=== PATIENT | female | born 1990 | race African-American/Black ===

== ENCOUNTER 2017-07-21 23:00 | Inpatient (IN) | payer MEDICAID ==
[~2017-07-21] VITALS: Ht 165.1 cm; Wt 136.5 kg
[2017-07-21] MEDS ORDERED: SERT50TA12 PO (23:37)
[2017-07-21] MEDS ORDERED: QUET200T PO (23:37)
[2017-07-21] MEDS ORDERED: RISP1 PO (23:37)
[2017-07-22] MEDS ORDERED: HALOPERIDOL 5 MG TABLET PO ONE (01:00)
[2017-07-22] MEDS ORDERED: LORazepam 2 MG TABLET PO ONE (01:00)
[2017-07-22 01:27] LABS: BASOPHILS % (AUTO) 0.9 % (0.0-2.0); EOSINOPHILS % (AUTO) 1.2 % (1.0-6.0); HEMATOCRIT 31.1 % (36-46); HEMOGLOBIN 10.2 g/dL (12.0-16.0); LYMPHOCYTES # (AUTO) 3.9 K/uL (1.0-4.8); LYMPHOCYTES % (AUTO) 33.9 % (22.0-44.0); MEAN CORPUSCULAR HGB CONC 32.8 G/dL (31.0-37.0); MEAN CORPUSCULAR VOLUME 79 fL (80-100); MONOCYTES # (AUTO) 0.7 K/uL (0.1-1.0); NEUTROPHILS # (AUTO) 6.6 K/uL (1.8-7.7); PLATELET COUNT (AUTO) 382 K/uL (150-450); RED BLOOD CELL COUNT(AUTO) 3.91 MIL/uL (4.00-5.20); RED CELL DISTRIBUTION WIDTH 16.6 % (11.5-14.5)
[2017-07-22 01:32] LABS: ANION GAP 2 mmol/L (8-16); CALCIUM, TOTAL 8.7 mg/dL (8.8-10.5); CARBON DIOXIDE 30 mmol/L (22-29); CHLORIDE 103 mmol/L (98-107); CREATININE 0.95 mg/dL (0.60-1.30); GLOMERULAR FILTR. RATE CALC > 60 mL/min (>60); GLUCOSE,RANDOM 102 mg/dL (70-110); POTASSIUM 3.3 mmol/L (3.5-5.1); SODIUM SERUM 135 mmol/L (136-145); UREA NITROGEN, BLOOD 9 mg/dL (7-18)
[2017-07-22 01:38] LABS: ALANINE AMINOTRANSFERASE 30 U/L (12-78); ALBUMIN 2.7 g/dL (3.4-5.0); ALKALINE PHOSPHATASE 92 U/L (46-116); ASPARTATE AMINOTRANSFERASE 20 U/L (15-37); BILIRUBIN,TOTAL 0.2 mg/dL (0.1-1.0); TOTAL PROTEIN, SERUM 7.2 g/dL (6.4-8.2)
[2017-07-22 08:48] VITALS: BP 109/62
[2017-07-22] MEDS ORDERED: POTASSIUM CHLORIDE 10 MEQ ER TABLET PO ONE (09:15)
[2017-07-22] MEDS: BACITRACIN 28.4 GM OINTMENT TP SCH ×2 (09:30→17:00)
[2017-07-22] MEDS: SERTRALINE HCL 50 MG TABLET PO SCH (11:15)
[2017-07-22] MEDS: HALOPERIDOL 5 MG TABLET PO PRN (17:40)
[2017-07-22] MEDS: QUEtiapine FUMARATE 100 MG TABLET PO SCH (20:16)
[2017-07-23] MEDS: SERTRALINE HCL 50 MG TABLET PO SCH (09:18)
[2017-07-23] MEDS: BACITRACIN 28.4 GM OINTMENT TP SCH ×2 (09:19→17:02)
[2017-07-23] MEDS ORDERED: POTASSIUM CHLORIDE 20 MEQ ER TABLET PO ONE (09:45)
[2017-07-23 16:28] VITALS: BP 122/80
[2017-07-23 20:06] VITALS: BP 126/82
[2017-07-23] MEDS: QUEtiapine FUMARATE 100 MG TABLET PO SCH (20:06)
[2017-07-23] MEDS: ACETAMINOPHEN 325 MG TABLET PO PRN (20:06)
[2017-07-23] MEDS: ZOLPIDEM TARTRATE 10 MG TABLET PO PRN (21:11)
[2017-07-24] MEDS: BACITRACIN 28.4 GM OINTMENT TP SCH ×2 (10:51→17:02)
[2017-07-24] MEDS: SERTRALINE HCL 50 MG TABLET PO SCH (10:52)
[2017-07-24 16:19] VITALS: BP 126/85
[2017-07-24] MEDS: QUEtiapine FUMARATE 100 MG TABLET PO SCH (20:04)
[2017-07-24] MEDS: ZOLPIDEM TARTRATE 10 MG TABLET PO PRN (20:04)
[2017-07-25] MEDS: SERTRALINE HCL 50 MG TABLET PO SCH (08:38)
[2017-07-25] MEDS: BACITRACIN 28.4 GM OINTMENT TP SCH ×2 (08:39→17:27)
[2017-07-25] MEDS: FERROUS SULFATE 325 MG EC TABLET PO SCH (17:27)
[2017-07-25] MEDS: ACETAMINOPHEN 325 MG TABLET PO PRN (17:50)
[2017-07-25] MEDS: QUEtiapine FUMARATE 100 MG TABLET PO SCH (20:17)
[2017-07-26 01:19] VITALS: BP 116/76
[2017-07-26] MEDS: ACETAMINOPHEN 325 MG TABLET PO PRN ×2 (01:27→20:21)
[2017-07-26] MEDS: ZOLPIDEM TARTRATE 10 MG TABLET PO PRN ×2 (01:28→21:05)
[2017-07-26] MEDS: FERROUS SULFATE 325 MG EC TABLET PO SCH ×3 (07:04→16:18)
[2017-07-26] MEDS: SERTRALINE HCL 50 MG TABLET PO SCH (08:37)
[2017-07-26] MEDS: BACITRACIN 28.4 GM OINTMENT TP SCH ×2 (08:41→17:04)
[2017-07-26 08:47] VITALS: BP 120/80
[2017-07-26] MEDS ORDERED: QUET50TA PO (12:49)
[2017-07-26 16:08] VITALS: BP 117/71
[2017-07-26] MEDS: CEPHALEXIN MONOHYDRATE 500 MG CAPSULE PO SCH (16:18)
[2017-07-26] MEDS: SULFAMETHOX/TRIMETH DS 800-160 MG/TABLET PO SCH (16:18)
[2017-07-26] MEDS: HALOPERIDOL 5 MG TABLET PO PRN (18:28)
[2017-07-26] MEDS: LORazepam 2 MG TABLET PO PRN (18:28)
[2017-07-26] MEDS: QUEtiapine FUMARATE 100 MG TABLET PO SCH (20:16)
[2017-07-27] MEDS: FERROUS SULFATE 325 MG EC TABLET PO SCH ×4 (07:00→16:59)
[2017-07-27] MEDS: BACITRACIN 28.4 GM OINTMENT TP SCH ×2 (08:55→16:30)
[2017-07-27] MEDS: CEPHALEXIN MONOHYDRATE 500 MG CAPSULE PO SCH ×3 (08:56→16:30)
[2017-07-27] MEDS: SERTRALINE HCL 50 MG TABLET PO SCH (08:56)
[2017-07-27] MEDS: SULFAMETHOX/TRIMETH DS 800-160 MG/TABLET PO SCH ×2 (09:00→16:30)
[2017-07-27 13:07] VITALS: BP 109/72
[2017-07-27] MEDS: ACETAMINOPHEN 325 MG TABLET PO PRN (13:49)
[2017-07-27] MEDS ORDERED: FLUCONAZOLE 150 MG TABLET PO ONE (16:00)
[2017-07-27 16:33] VITALS: BP 119/74
[2017-07-27] MEDS: QUEtiapine FUMARATE 100 MG TABLET PO SCH (20:27)
[2017-07-27] MEDS: ZOLPIDEM TARTRATE 10 MG TABLET PO PRN (20:34)
[2017-07-28 01:23] VITALS: BP 117/70
[2017-07-28] MEDS: LORazepam 2 MG TABLET PO PRN (01:25)
[2017-07-28] MEDS: ACETAMINOPHEN 325 MG TABLET PO PRN (01:25)
[2017-07-28] MEDS: FERROUS SULFATE 325 MG EC TABLET PO SCH ×3 (06:48→16:46)
[2017-07-28] MEDS: SERTRALINE HCL 50 MG TABLET PO SCH (09:08)
[2017-07-28] MEDS: SULFAMETHOX/TRIMETH DS 800-160 MG/TABLET PO SCH ×2 (09:09→16:46)
[2017-07-28] MEDS: BACITRACIN 28.4 GM OINTMENT TP SCH ×2 (09:09→16:49)
[2017-07-28] MEDS: CEPHALEXIN MONOHYDRATE 500 MG CAPSULE PO SCH ×3 (09:09→16:46)
[2017-07-28 09:10] LABS: APPEARANCE,URINE CLOUDY (CLEAR); BILIRUBIN,URINE NEGATIVE (NEGATIVE); GLUCOSE, URINE (UA) NEGATIVE (NEGATIVE); KETONES,URINE TRACE mg/dL (NEGATIVE); LEUKOCYTE ESTERASE ,URINE NEGATIVE (NEGATIVE); NITRATE,URINE NEGATIVE (NEGATIVE); OCCULT BLOOD,URINE NEGATIVE (NEGATIVE); PH,URINE 6.5 (5.0-8.0); PROTEIN,URINE NEGATIVE (NEGATIVE)
[2017-07-28 09:14] LABS: AMPHET/METH SCREEN,URINE NEGATIVE (NEGATIVE); BARBITURATE SCREEN, URINE NEGATIVE (NEGATIVE); BENZODIAZEPINES SCREEN,URINE NEGATIVE (NEGATIVE); CANNABINOID SCREEN,URINE NEGATIVE (NEGATIVE); COCAINE SCREEN,URINE NEGATIVE (NEGATIVE); METHADONE SCREEN, URINE NEGATIVE (NEGATIVE); OPIATE SCREEN,URINE NEGATIVE (NEGATIVE); PHENCYCLIDINE SCREEN,URINE NEGATIVE (NEGATIVE)
[2017-07-28 09:19] LABS: BACTERIA,URINE Few /HPF (None Seen); RBC,URINE None Seen /HPF (0-2); WBC,URINE 0-2 /HPF (0-5)
[2017-07-28 09:20] LABS: SQUAMOUS EPITHELIAL CELL,UR Many /LPF (None Seen)
[2017-07-28 16:07] VITALS: BP 108/68
[2017-07-28] MEDS: QUEtiapine FUMARATE 100 MG TABLET PO SCH (20:20)
[2017-07-28] MEDS: ZOLPIDEM TARTRATE 10 MG TABLET PO PRN (20:21)
[2017-07-29] MEDS: FERROUS SULFATE 325 MG EC TABLET PO SCH ×3 (06:56→17:00)
[2017-07-29 07:00] VITALS: BP 117/72
[2017-07-29] MEDS: BACITRACIN 28.4 GM OINTMENT TP SCH ×2 (09:00→16:36)
[2017-07-29] MEDS: SULFAMETHOX/TRIMETH DS 800-160 MG/TABLET PO SCH ×2 (09:00→17:00)
[2017-07-29] MEDS: SERTRALINE HCL 50 MG TABLET PO SCH (09:00)
[2017-07-29] MEDS: CEPHALEXIN MONOHYDRATE 500 MG CAPSULE PO SCH ×3 (09:00→17:00)
[2017-07-29 16:25] VITALS: BP 125/80
[2017-07-29] MEDS: LORazepam 2 MG TABLET PO PRN (16:36)
[2017-07-29] MEDS: IBUPROFEN 400 MG TABLET PO PRN (17:12)
[2017-07-29] MEDS: QUEtiapine FUMARATE 100 MG TABLET PO SCH (20:22)
[2017-07-29] MEDS: ZOLPIDEM TARTRATE 10 MG TABLET PO PRN (20:41)
[2017-07-30] MEDS: FERROUS SULFATE 325 MG EC TABLET PO SCH ×3 (07:05→17:08)
[2017-07-30] MEDS: BACITRACIN 28.4 GM OINTMENT TP SCH ×2 (09:00→17:00)
[2017-07-30] MEDS: CEPHALEXIN MONOHYDRATE 500 MG CAPSULE PO SCH ×3 (09:00→17:00)
[2017-07-30] MEDS: SERTRALINE HCL 50 MG TABLET PO SCH (09:00)
[2017-07-30] MEDS: SULFAMETHOX/TRIMETH DS 800-160 MG/TABLET PO SCH ×2 (09:00→17:00)
[2017-07-30] MEDS: IBUPROFEN 400 MG TABLET PO PRN (17:32)
[2017-07-30 17:33] VITALS: BP 124/80
[2017-07-30] MEDS: QUEtiapine FUMARATE 100 MG TABLET PO SCH (20:25)
[2017-07-30] MEDS: ZOLPIDEM TARTRATE 10 MG TABLET PO PRN (20:26)
[2017-07-31] MEDS: FERROUS SULFATE 325 MG EC TABLET PO SCH ×3 (07:07→17:00)
[2017-07-31] MEDS: SULFAMETHOX/TRIMETH DS 800-160 MG/TABLET PO SCH ×3 (08:31→17:00)
[2017-07-31] MEDS: SERTRALINE HCL 50 MG TABLET PO SCH ×2 (08:31→11:20)
[2017-07-31] MEDS: CEPHALEXIN MONOHYDRATE 500 MG CAPSULE PO SCH ×4 (08:31→17:00)
[2017-07-31] MEDS: BACITRACIN 28.4 GM OINTMENT TP SCH ×3 (09:25→17:00)
[2017-07-31] MEDS: QUEtiapine FUMARATE 100 MG TABLET PO SCH (20:07)
[2017-08-01] MEDS: FERROUS SULFATE 325 MG EC TABLET PO SCH ×3 (06:49→17:00)
[2017-08-01] MEDS: SULFAMETHOX/TRIMETH DS 800-160 MG/TABLET PO SCH ×2 (09:00→17:00)
[2017-08-01] MEDS: CEPHALEXIN MONOHYDRATE 500 MG CAPSULE PO SCH ×3 (09:00→17:00)
[2017-08-01] MEDS: SERTRALINE HCL 50 MG TABLET PO SCH (09:51)
[2017-08-01] MEDS: BACITRACIN 28.4 GM OINTMENT TP SCH ×2 (09:52→17:00)
[2017-08-01] MEDS: LORazepam 2 MG TABLET PO PRN (13:00)
[2017-08-01 16:20] VITALS: BP 106/70
[2017-08-01] MEDS: QUEtiapine FUMARATE 100 MG TABLET PO SCH (21:00)
[2017-08-02] MEDS: FERROUS SULFATE 325 MG EC TABLET PO SCH ×3 (06:29→17:00)
[2017-08-02] MEDS: SERTRALINE HCL 50 MG TABLET PO SCH (08:03)
[2017-08-02] MEDS: BACITRACIN 28.4 GM OINTMENT TP SCH ×2 (08:06→17:00)
[2017-08-02 08:37] VITALS: BP 116/71
[2017-08-02] MEDS: SULFAMETHOX/TRIMETH DS 800-160 MG/TABLET PO SCH ×2 (09:00→17:00)
[2017-08-02] MEDS: CEPHALEXIN MONOHYDRATE 500 MG CAPSULE PO SCH ×3 (09:00→17:00)
[2017-08-02 16:23] VITALS: BP 112/60
[2017-08-02] MEDS: QUEtiapine FUMARATE 100 MG TABLET PO SCH (21:00)
[2017-08-03 05:41] VITALS: BP 109/75
[2017-08-03] MEDS: FERROUS SULFATE 325 MG EC TABLET PO SCH ×3 (06:38→17:02)
[2017-08-03 08:43] VITALS: BP 122/89
[2017-08-03] MEDS: BACITRACIN 28.4 GM OINTMENT TP SCH ×2 (09:00→17:02)
[2017-08-03] MEDS: SERTRALINE HCL 50 MG TABLET PO SCH ×2 (09:00→11:59)
[2017-08-03 16:07] VITALS: BP 108/82
[2017-08-03] MEDS: IBUPROFEN 400 MG TABLET PO PRN (17:01)
[2017-08-03] MEDS: QUEtiapine FUMARATE 100 MG TABLET PO SCH (20:46)
[2017-08-04 01:24] VITALS: BP 121/69
[2017-08-04] MEDS: FERROUS SULFATE 325 MG EC TABLET PO SCH ×3 (07:00→17:00)
[2017-08-04] MEDS: SERTRALINE HCL 50 MG TABLET PO SCH (08:54)
[2017-08-04] MEDS: BACITRACIN 28.4 GM OINTMENT TP SCH ×2 (08:55→17:00)
[2017-08-04 16:33] VITALS: BP 118/70
[2017-08-04] MEDS: QUEtiapine FUMARATE 100 MG TABLET PO SCH (20:27)
[2017-08-05 03:09] VITALS: BP 123/72
[2017-08-05] MEDS: FERROUS SULFATE 325 MG EC TABLET PO SCH ×3 (06:44→16:25)
[2017-08-05] MEDS: SERTRALINE HCL 50 MG TABLET PO SCH (09:23)
[2017-08-05] MEDS: BACITRACIN 28.4 GM OINTMENT TP SCH ×2 (09:23→16:25)
[2017-08-05] MEDS: QUEtiapine FUMARATE 100 MG TABLET PO SCH (20:57)
[2017-08-05] MEDS: ZOLPIDEM TARTRATE 10 MG TABLET PO PRN (22:49)
[2017-08-06] MEDS: FERROUS SULFATE 325 MG EC TABLET PO SCH ×3 (06:50→16:33)
[2017-08-06] MEDS: SERTRALINE HCL 50 MG TABLET PO SCH (10:08)
[2017-08-06] MEDS: BACITRACIN 28.4 GM OINTMENT TP SCH ×2 (10:08→16:34)
[2017-08-06 16:24] VITALS: BP 117/73
[2017-08-06] MEDS: QUEtiapine FUMARATE 100 MG TABLET PO SCH (20:14)
[2017-08-07 01:35] VITALS: BP 119/80
[2017-08-07] MEDS: FERROUS SULFATE 325 MG EC TABLET PO SCH (06:46)
[2017-08-07] MEDS: SERTRALINE HCL 50 MG TABLET PO SCH (08:09)
[2017-08-07] MEDS: BACITRACIN 28.4 GM OINTMENT TP SCH (08:09)
[2017-08-07] MEDS ORDERED: FERR-89 PO (09:29)
[2017-08-07] MEDS ORDERED: QUET100T33 PO (09:42)
[2017-08-07] MEDS ORDERED: SERT50TA12 PO (09:42)
== END 2017-08-07 11:10 | disposition home or self-care (01) | DRG 750 ==
LOC: EMS 23:01 → B2S 07-22 00:01
DX: F25.1 Schizoaffective disorder, depressive type (principal); R45.851 Suicidal ideations; Z59.0 Homelessness; E87.6 Hypokalemia; D64.9 Anemia, unspecified; F14.90 Cocaine use, unspecified, uncomplicated; F15.90 Other stimulant use, unspecified, uncomplicated; D72.829 Elevated white blood cell count, unspecified; Z98.891 History of uterine scar from previous surgery; Z79.899 Other long term (current) drug therapy; Z71.51 Drug abuse counseling and surveillance of drug abuser
CPT/HCPCS: 80307; 87070; 87205; 99285; G0480